=== PATIENT | male | born 1980 | race Caucasian/White ===

== ENCOUNTER 2016-09-08 16:11 | Emergency (ER) | payer OTHER ==
--- NOTE | ~2016-09-08 | CR212 ---
[facility]. [facility] A Service of [facility] & [facility] RADIOLOGY TEXT RESULTS PATIENT: SKY PATTON LOCATION: SED : 80 UNIT #: [id number] AGE: [address]: Natasha Enriquez SEX: M ORDER DR: [id number] [address] [address] [id number] MR#: [id number] Acc #: [id number] NAME: SKY PATTON. : 1980 SEX: M STUDY DATE/TIME: 09/08/2016 16:07 UNIT: SED ROOM: STUDY DESCRIPTION: CR Ribs Unilateral 2 View Lt Attending Physician: Natasha Enriquez Pa-C Ordering Physician: Physician Non-Staff Primary Care Physician: Primary Care Physician No MEDICAL IMAGING REPORT This report is preliminary unless electronic signature is present. EXAM Chest and left ribs HISTORY Left-sided back and rib pain at 09:00. Throwing objects at work. FINDINGS An AP view of the chest and AP and oblique views of the left ribs are obtained. Cardiovascular configuration is normal. Left rib series is negative. There is a radiopaque foreign body identified that appears metallic projected over the left mid chest. It is significantly lateral to this on the obliqued images. CONCLUSION 1. No acute process in the chest. 2. Metallic foreign body possibly in the soft tissues overlying the left chest. Dictated by... Jhonatan Moran M.D. THIS IS AN ELECTRONICALLY VERIFIED REPORT Jhonatan Moran M.D. at 09/12/2016 4:53 PM Stevan TD: 09/08/2016 17:28 JOB #: [id number] MEDICAL IMAGING REPORT Page 1 of 1
[~2016-09-08 16:11] MED LIST: BACTRIM DS TABL1 TAB PO; BACTROBAN15 GM TOP; BENADRYL PO; BENADRYL25 MG PO; DOXYCYCLINE PO; FLOMAX0.4 MG PO; IBUPROFEN800 MG PO; MEDROL DOSEPAK4 MG PO; MEDROL PO; NAPROSYN500 MG PO; PERCOCET5/325 PO; PHENERGAN PO; RANITIDINE HCL300 MG PO; SKELAXIN PO; VICODIN 5/500 T1 TAB PO; ZANTAC PO
== END 2016-09-08 17:04 | disposition home or self-care (01) ==
LOC: SED 16:11
DX: S29.011A Strain of muscle and tendon of front wall of thorax, initial encounter (principal); F17.210 Nicotine dependence, cigarettes, uncomplicated; J45.909 Unspecified asthma, uncomplicated; X50.0XXA Overexertion from strenuous movement or load, initial encounter; Y92.69 Other specified industrial and construction area as the place of occurrence of the external cause
CPT/HCPCS: 71100; 99283